=== PATIENT | female | born 1990 | race African-American/Black ===

== ENCOUNTER 2019-03-22 08:54 | Emergency (ER) | payer OTHER ==
[~2019-03-22] VITALS: Ht 152.4 cm; Wt 51.3 kg
[~2019-03-22 08:54] MED LIST: BUDE90AE IH; PREN1TAB80 PO
--- NOTE | 2019-03-22 09:30 | PHYS DOC ---
Adult General Chief Complaint Chief Complaint: ABDOMINAL PAIN IN HPI HPI Patient is a 28 year old female who presents with complaining of abdominal pain in . Patient is with LMP of February 02 and positive home 2 weeks ago without following up with [employer]. Patient complaining of nausea wi thout vomiting for the last 2 weeks and left side abdominal pain since this morning without vaginal bleeding or discharge, recent intercourse, urinary symptoms, fever and chills, diarrhea and constipation, fever and chills. Patient rated her pain 6/10 and denied taking any pain medication. Review of Systems Review of Systems Constitutional: Denies fever or chills [] Eyes: Denies change in visual acuity, redness, or eye pain [] HENT: Denies nasal congestion or sore throat [] Respiratory: Denies cough or shortness of breath [] Cardiovascular: No additional information not addressed in HPI [] GI: Reports abdominal pain, nausea, denies vomiting, bloody stools or diarrhea [] : Denies dysuria or hematuria [] Musculoskeletal: Denies back pain or joint pain [] Integument: Denies rash or skin lesions [] Neurologic: Denies headache, focal weakness or sensory changes [] Endocrine: Denies polyuria or polydipsia [] All other systems were reviewed and found to be within normal limits, except as documented in this note. Current Medications Current Medications Current Medications Medications (Trade) Dose Ordered Sig/Katrhik Start Time Stop Time Status Last Admin Dose Admin Ondansetron HCl (Zofran) 4 mg 1X ONCE 03/22/19 09:45 03/22/19 09:46 DC 03/22/19 10:23 4 MG Sodium Chloride 1,000 ml @ 1,000 mls/hr 1X ONCE 03/22/19 09:45 03/22/19 10:44 DC 03/22/19 10:23 1,000 MLS/HR Allergies Allergies Allergies Coded Allergies Type Severity Reaction Last Updated Verified No Known Drug Allergies 01/14/16 No Physical Exam Physical Exam Constitutional: Well developed, well nourished, no acute distress, non-toxic appearance. [] HENT: Normocephalic, atraumatic, oropharynx moist. Eyes: PERRLA, EOMI, conjunctiva normal, no discharge. [] Neck: Normal range of motion, no tenderness, supple, no stridor. [] Cardiovascular:Heart rate regular rhythm, no murmur [] Lungs & Thorax: Bilateral breath sounds clear to auscultation [] Abdomen: Bowel sounds normal, soft, no tenderness, no masses, no pulsatile masses. [] Skin: Warm, dry, no erythema, no rash. [] Back: No tenderness, no CVA tenderness. [] Extremities: No tenderness, no cyanosis, no clubbing, ROM intact, no edema. [] Neurologic: Alert and oriented X 3, normal motor function, normal sensory function, no focal deficits noted. [] Psychologic: Affect normal, judgement normal, mood normal. [] Current Patient Data Vital Signs Vital Signs Date Time Temp Pulse Resp B/P (MAP) Pulse Ox O2 Delivery O2 Flow Rate FiO2 03/22/19 09:37 98.4 64 16 130/88 (102) 100 98.4 Lab Values Laboratory Tests Test 03/22/19 09:05 03/22/19 09:20 03/22/19 09:30 Urine Collection Type Unknown Urine Color Yellow Urine Clarity Clear Urine pH 6.0 Urine Specific Norris 1.020 Urine Protein Negative mg/dL (NEG-TRACE) Urine Glucose (UA) Negative mg/dL (NEG) Urine Ketones (Stick) Negative mg/dL (NEG) Urine Blood Negative (NEG) Urine Nitrite Negative (NEG) Urine Bilirubin Negative (NEG) Urine Urobilinogen Dipstick 1.0 mg/dL (0.2 mg/dL) Urine Leukocyte Esterase Trace (NEG) Urine RBC 0 /HPF (0-2) Urine WBC Rare /HPF (0-4) Urine Squamous Epithelial Cells Few /LPF Urine Bacteria 0 /HPF (0-FEW) Urine Mucus Marked /LPF POC Urine HCG, Qualitative Hcg positive (Negative) White Blood Count 6.8 x10^3/uL (4.0-11.0) Red Blood Count 4.28 x10^6/uL (3.50-5.40) Hemoglobin 11.6 g/dL (12.0-15.5) L Hematocrit 35.2 % (36.0-47.0) L Mean Corpuscular Volume 82 fL (79-100) Mean Corpuscular Hemoglobin 27 pg (25-35) Mean Corpuscular Hemoglobin Concent 33 g/dL (31-37) Red Cell Distribution Width 13.3 % (11.5-14.5) Platelet Count 234 x10^3/uL (140-400) Neutrophils (%) (Auto) 67 % (31-73) Lymphocytes (%) (Auto) 21 % (24-48) L Monocytes (%) (Auto) 9 % (0-9) Eosinophils (%) (Auto) 3 % (0-3) Basophils (%) (Auto) 0 % (0-3) Neutrophils # (Auto) 4.6 x10^3/uL (1.8-7.7) Lymphocytes # (Auto) 1.4 x10^3/uL (1.0-4.8) Monocytes # (Auto) 0.6 x10^3/uL (0.0-1.1) Eosinophils # (Auto) 0.2 x10^3/uL (0.0-0.7) Basophils # (Auto) 0.0 x10^3/uL (0.0-0.2) Maternal Serum HCG Beta Subunit [id number] mIU/mL (0-5) H Sodium Level 136 mmol/L (136-145) Potassium Level 4.5 mmol/L (3.5-5.1) Chloride Level 103 mmol/L (98-107) Carbon Dioxide Level 25 mmol/L (21-32) Anion Gap 8 (6-14) Blood Urea Nitrogen 8 mg/dL (7-20) Creatinine 0.7 mg/dL (0.6-1.0) Estimated GFR (Cockcroft-Gault) 122.4 BUN/Creatinine Ratio 11 (6-20) Glucose Level 81 mg/dL (70-99) Calcium Level 8.4 mg/dL (8.5-10.1) L Total Bilirubin 0.3 mg/dL (0.2-1.0) Aspartate Amino Transferase (AST) 20 U/L (15-37) Alanine Aminotransferase (ALT) 16 U/L (14-59) Alkaline Phosphatase 115 U/L (46-116) Total Protein 7.6 g/dL (6.4-8.2) Albumin 3.4 g/dL (3.4-5.0) Albumin/Globulin Ratio 0.8 (1.0-1.7) L Laboratory Tests 03/22/19 09:30 Laboratory Tests 03/22/19 09:30 EKG EKG [] Radiology/Procedures Radiology/Procedures [][facility] [address] [place] [address] IMAGING REPORT Signed PATIENT: DARA PERALTA: [id number] : 1990 LOCATION: ER AGE: 28 SEX: F EXAM STATUS: REG ER ORD. PHYSICIAN: COLIN TAVERAS MD REASON: left lower quadrant pain during PROCEDURE: PREG 1ST TRIMESTER CLINICAL HISTORY: left lower quadrant pain during COMPARISON: None available. TECHNIQUE: transabdominal sonography was performed FINDINGS: An intrauterine gestational sac is present. An embryo is identified .Cardiac activity is visualized and documented at a rate of 141 beats per minute. There is no subchorionic fluid collection. Based on a crown rump length averaging 1.1 cm, the estimated gestational age is 7 weeks, 1 days. Estimated date of delivery is 11/07/2019. The right ovary measures 3 x 1.5 x 1.6 cm. The left ovary measures 3.3 x 2.4 x 1.8 cm. There is no pelvic free fluid. IMPRESSION: 1. Single live intrauterine gestation with mean sonographic age of 7 weeks, 1 days. The estimated date of delivery is 11/07/2019. 2. No abnormal adnexal masses Electronically signed by: Chacho Rivera MD (03/22/2019 10:36 AM) [id number] DICTATED and SIGNED BY: CHACHO RIVERA MD DATE: 03/22/19 1036 Course & Med Decision Making Course & Med Decision Making Pertinent Labs and Imaging studies reviewed. (See chart for details) Evaluation of patient in ER showed 28-year-old at 7 weeks of gestation with complaining of left lower quadrant pain since this morning and nausea for 2 weeks. Patient had unremarkable physical exam and labs with hCG level of 100 constant. OB ultrasound showed intrauterine single viable . Prescription for Zofran was given and patient was advised to follow-up with [employer]. I've spoken with the patient and/or caregivers. I've explained the patient's condition, diagnosis and treatment plan based on information available to me at this time. I've answered the patient's and/or caregivers questions and addressed any concerns. The patient and/or caregivers have a good understanding the patient's diagnosis, condition and treatment plan as can be expected at this point. Vital signs have been stabilized. The patient's condition is stable for discharge from the emergency department. The patient will pursue further outpatient evaluation with her primary care provider or other designated consulting physician as outlined in the discharge instructions. Patient and/or caregivers are agreeable to this plan of care and follow-up instructions have been explained in detail. The patient and/or caregivers have received these instructions in written format and expressed understanding of these discharge instructions. The patient and her caregivers are aware that if any significant change in condition or worsening of symptoms should prompt him to immediately return to this of the closest emergency department. If an emergent department is not readily available I would encourage him to call 911. Dragon Disclaimer Dragon Disclaimer This electronic medical record was generated, in whole or in part, using a voice recognition dictation system. Departure Departure Impression: Primary Impression: Abdominal pain during in first trimester Additional Impressions: Intrauterine normal related nausea, antepartum Disposition: HOME, SELF-CARE (at 1052) Condition: IMPROVED Referrals: NO PCP (PCP) DANIEL STONE MD Patient Instructions: Abdominal Pain During , Diet - Hyperemesis Gravidarum Additional Instructions: Drink plenty of liquids Follow-up with your [employer] physician in 3-5 days Return to ER if not getting better Scripts Ondansetron Hcl (ZOFRAN) 4 Mg Tablet 1 TAB PO PRN Q6-8HRS for nausea, #12 TAB Prov: COLIN TAVERAS MD 03/22/19 Problem Qualifiers Additional Impressions: Intrauterine normal Trimester: first trimester Qualified Codes: Z34.91 - Encounter for supervision of normal , unspecified, first trimester COLIN TAVERAS MD Mar 22, 2019 09:30
[2019-03-22 09:37] VITALS: BP 130/88
[2019-03-22] MEDS ORDERED: IV NORMAL SALINE 1000ML BAG 1,000 ML IV ONE (09:45)
[2019-03-22] MEDS ORDERED: ONDANSETRON PF 4 MG/2 ML VIAL. IV ONE (09:45)
[2019-03-22 09:58] LABS: BASO % 0 % (0-3); EOS # 0.2 x10^3/uL (0.0-0.7); EOS % 3 % (0-3); HEMATOCRIT 35.2 % (36.0-47.0); HEMOGLOBIN 11.6 g/dL (12.0-15.5); LYMPH # 1.4 x10^3/uL (1.0-4.8); LYMPH % 21 % (24-48); MEAN CORPUSCULAR HEMOGLOBIN 27 pg (25-35); MEAN CORPUSCULAR HGB CONC 33 g/dL (31-37); MEAN CORPUSCULAR VOLUME 82 fL (79-100); MONO # 0.6 x10^3/uL (0.0-1.1); MONO % 9 % (0-9); NEUT # 4.6 x10^3/uL (1.8-7.7); NEUT % 67 % (31-73); PLATELET COUNT 234 x10^3/uL (140-400); RED BLOOD COUNT 4.28 x10^6/uL (3.50-5.40); RED CELL DISTRIBUTION WIDTH 13.3 % (11.5-14.5); WHITE BLOOD COUNT 6.8 x10^3/uL (4.0-11.0)
[2019-03-22 10:09] LABS: CALCIUM 8.4 mg/dL (8.5-10.1); CREATININE 0.7 mg/dL (0.6-1.0); GFR 122.4; POTASSIUM 4.5 mmol/L (3.5-5.1)
[2019-03-22 10:15] LABS: BILIRUBIN,URINE NEGATIVE (NEG); CLARITY,URINE CLEAR; COLOR,URINE YELLOW; NITRITE,URINE NEGATIVE (NEG); PROTEIN,URINE NEGATIVE (NEG-TRACE)
[2019-03-22 10:16] LABS: ALBUMIN 3.4 g/dL (3.4-5.0); ALBUMIN/GLOBULIN RATIO 0.8 (1.0-1.7); TOTAL BILIRUBIN 0.3 mg/dL (0.2-1.0); TOTAL PROTEIN 7.6 g/dL (6.4-8.2)
--- NOTE | 2019-03-22 10:39 | RAD ---
CLINICAL HISTORY: left lower quadrant pain during COMPARISON: None available. TECHNIQUE: transabdominal sonography was performed FINDINGS: An intrauterine gestational sac is present. An embryo is identified .Cardiac activity is visualized and documented at a rate of 141 beats per minute. There is no subchorionic fluid collection. Based on a crown rump length averaging 1.1 cm, the estimated gestational age is 7 weeks, 1 days. Estimated date of delivery is 11/07/2019. The right ovary measures 3 x 1.5 x 1.6 cm. The left ovary measures 3.3 x 2.4 x 1.8 cm. There is no pelvic free fluid. IMPRESSION: 1. Single live intrauterine gestation with mean sonographic age of 7 weeks, 1 days. The estimated date of delivery is 11/07/2019. 2. No abnormal adnexal masses Electronically signed by: Chacho Kc MD (03/22/2019 10:36 AM) [id number]
[2019-03-22 10:55] LABS: BACTERIA,URINE 0 /HPF (0-FEW); RBC,URINE 0 /HPF (0-2); SQUAMOUS EPITHELIAL CELL,UR FEW /LPF; WBC,URINE RARE /HPF (0-4)
[2019-03-22] MEDS ORDERED: ONDA4TAB7 PO (10:56)
== END 2019-03-22 11:03 | disposition home or self-care (01) ==
LOC: ER 08:54
DX: O26.891 Other specified pregnancy related conditions, first trimester (principal); R10.32 Left lower quadrant pain; R11.0 Nausea; Z3A.01 Less than 8 weeks gestation of pregnancy
CPT/HCPCS: 36415; 76801; 80053; 81001; 81025; 84702; 85025; 87086; 96374; 99285; J2405; J7030

== ENCOUNTER 2019-05-10 22:12 | Emergency (ER) | payer MEDICAID ==
[~2019-05-10] VITALS: Ht 152.4 cm; Wt 56.7 kg
[~2019-05-10 22:12] MED LIST changes: +ONDA4TAB7 PO
[2019-05-10 23:51] VITALS: BP 106/68
--- NOTE | 2019-05-11 00:03 | PHYS DOC ---
Past Medical History Past Medical History: No Pertinent History Past Surgical History: No Surgical History Alcohol Use: None Drug Use: None Adult General Chief Complaint Chief Complaint: VAGINAL BLEEDING [place] [employer] HPI Patient is a 28 year old female who presents with complaining of vaginal bleeding during . Patient is at 14 weeks of gestation and complaining of one episode of small amount of vaginal bleeding yesterday after intercourse that resolved today. Patient had itching and developing a rash after itching on her extremities and her back today and called nurse enterprise application architect to ask about taking Benadryl but was told to come to ER regarding her vaginal bleeding. Patient denies shortness of breath, abdominal pain, chest pain, urinary symptom, vaginal discharge. According to EMR patient had blood type A+. Review of Systems Review of Systems Constitutional: Denies fever or chills [] Eyes: Denies change in visual acuity, redness, or eye pain [] HENT: Denies nasal congestion or sore throat [] Respiratory: Denies cough or shortness of breath [] Cardiovascular: No additional information not addressed in HPI [] GI: Denies abdominal pain, nausea, vomiting, bloody stools or diarrhea [] : Denies dysuria or hematuria [] Musculoskeletal: Denies back pain or joint pain [] Integument: Reports rash Neurologic: Denies headache, focal weakness or sensory changes [] Endocrine: Denies polyuria or polydipsia [] All other systems were reviewed and found to be within normal limits, except as documented in this note. Allergies Allergies Allergies Coded Allergies Type Severity Reaction Last Updated Verified No Known Drug Allergies 01/14/16 No Physical Exam Physical Exam Constitutional: Well developed, well nourished, no acute distress, non-toxic appearance. [] HENT: Normocephalic, atraumatic. Eyes: PERRLA, EOMI, conjunctiva normal, no discharge. [] Neck: Normal range of motion, no tenderness, supple, no stridor. [] Cardiovascular:Heart rate regular rhythm, no murmur [] Lungs & Thorax: Bilateral breath sounds clear to auscultation [] Abdomen: Bowel sounds normal, soft, no tenderness, no masses, no pulsatile masses. Patient refused vaginal exam [] Skin: Warm, dry, no erythema, no rash. [] Back: No tenderness, no CVA tenderness. [] Extremities: No tenderness, no cyanosis, no clubbing, ROM intact, no edema. [] Neurologic: Alert and oriented X 3, no focal deficits noted. [] Psychologic: Affect normal, judgement normal, mood normal. [] Current Patient Data Vital Signs Vital Signs Date Time Temp Pulse Resp B/P (MAP) Pulse Ox O2 Delivery O2 Flow Rate FiO2 05/10/19 23:51 84 106/68 (81) 97 Room Air 05/10/19 22:51 18 05/10/19 22:30 98.4 98.4 Lab Values Laboratory Tests Test 05/10/19 22:25 POC Urine HCG, Qualitative Hcg positive (Negative) EKG EKG [] Radiology/Procedures Radiology/Procedures [][facility] [address] [place], [place] [id number] IMAGING REPORT Signed PATIENT: DARA PERALTAOUNT: [id number] : 1990 LOCATION: ER AGE: 28 SEX: F EXAM STATUS: REG ER ORD. PHYSICIAN: COLIN TAVERAS MD REASON: vaginal bleeding in PROCEDURE: OB LIMITED Examination: Obstetric ultrasound limited HISTORY: History of vaginal bleeding in COMPARISON: 03/22/2019 FINDINGS: Single living intrauterine identified with heart rate of 165 bpm. LMP 01/31/2019. Clinical age 14 weeks and 1 day with expected date of delivery 11/07/2019. Ultrasound age is 14 weeks and 4 days with expected date of delivery by ultrasound 11/04/2019. Cephalic index 90.1 Head circumference to abdominal circumference ratio 1.1 Femur length to biparietal diameter 52.7. Femur length to head circumference 13.9 Femur length to abdominal circumference is 16.6 Biparietal diameter measures 2.6 cm corresponding to 14 weeks and 4 days Head circumference measures 10 cm corresponding to 14 weeks and 5 days Abdominal circumference measures 8.3 cm corresponding to 14 weeks and 5 days Femur length measures 1.3 cm corresponding to 14 weeks and 1 day [place]-rump length measures 8.6 cm corresponding to 14 weeks and 4 days The posterior wall of the uterus appears more prominent could be contraction during the exam. IMPRESSION: 1. Single living intrauterine as described above. 2. The posterior wall of the uterus appears more prominent could be contraction during the exam. Electronically signed by: Anurag Gill MD (05/11/2019 12:11 AM) [facility] DICTATED and SIGNED BY: ANURAG GILL MD DATE: 05/11/19 0011 Course & Med Decision Making Course & Med Decision Making Pertinent Imaging studies reviewed. (See chart for details) Evaluation of patient in ER showed 28-year-old female patient with complaining of vaginal bleeding after intercourse. Patient had unremarkable physical exam with positive blood type. Ultrasound showed intrauterine without acute problem. Patient also complaining of some rash but did not have any rash in ER and was advised to take Benadryl as needed. I've spoken with the patient and/or caregivers. I've explained the patient's condition, diagnosis and treatment plan based on information available to me at this time. I've answered the patient's and/or caregivers questions and addressed any concerns. The patient and/or caregivers have a good understanding the patient's diagnosis, condition and treatment plan as can be expected at this point. Vital signs have been stabilized. The patient's condition is stable for discharge from the emergency department. The patient will pursue further outpatient evaluation with her primary care provider or other designated consulting physician as outlined in the discharge instructions. Patient and/or caregivers are agreeable to this plan of care and follow-up instructions have been explained in detail. The patient and/or ca regivers have received these instructions in written format and expressed understanding of these discharge instructions. The patient and her caregivers are aware that if any significant change in condition or worsening of symptoms should prompt him to immediately return to this of the closest emergency department. If an emergent department is not readily available I would encourag e him to call 911. Geovani Disclaimer Geovani Disclaimer This electronic medical record was generated, in whole or in part, using a voice recognition dictation system. Departure Departure Impression: Primary Impression: Postcoital bleeding Additional Impressions: Vaginal bleeding during Itching Disposition: 01 HOME, SELF-CARE (at 0002) Condition: STABLE Referrals: NO PCP (PCP) Patient Instructions: Itching-Brief, Vaginal Bleeding During , Second Trimester Additional Instructions: Drink plenty of liquids Follow-up with your primary care physician in 3-5 days Return to ER if not getting better Pelvic rest for one week May take [id number] Benadryl 25 mg every 8-12 hours as needed for itching Problem Qualifiers COLIN TAVERAS MD May 11, 2019 00:03
--- NOTE | 2019-05-11 00:14 | RAD ---
Examination: Obstetric ultrasound limited HISTORY: History of vaginal bleeding in COMPARISON: 03/22/2019 FINDINGS: Single living intrauterine identified with heart rate of 165 bpm. LMP 01/31/2019. Clinical age 14 weeks and 1 day with expected date of delivery 11/07/2019. Ultrasound age is 14 weeks and 4 days with expected date of delivery by ultrasound 11/04/2019. Cephalic index 90.1 Head circumference to abdominal circumference ratio 1.1 Femur length to biparietal diameter 52.7. Femur length to head circumference 13.9 Femur length to abdominal circumference is 16.6 Biparietal diameter measures 2.6 cm corresponding to 14 weeks and 4 days Head circumference measures 10 cm corresponding to 14 weeks and 5 days Abdominal circumference measures 8.3 cm corresponding to 14 weeks and 5 days Femur length measures 1.3 cm corresponding to 14 weeks and 1 day [place]-rump length measures 8.6 cm corresponding to 14 weeks and 4 days The posterior wall of the uterus appears more prominent could be contraction during the exam. IMPRESSION: 1. Single living intrauterine as described above. 2. The posterior wall of the uterus appears more prominent could be contraction during the exam. Electronically signed by: Anurag Gill MD (05/11/2019 12:11 AM) [facility]
== END 2019-05-11 00:18 | disposition home or self-care (01) ==
LOC: ER 22:12
DX: O20.8 Other hemorrhage in early pregnancy (principal); O99.712 Diseases of the skin and subcutaneous tissue complicating pregnancy, second trimester; L29.9 Pruritus, unspecified; Z3A.14 14 weeks gestation of pregnancy
CPT/HCPCS: 76815; 81025; 99284

== ENCOUNTER 2019-06-27 23:10 | Observation (INO) | payer MEDICAID ==
[2019-06-27] MEDS ORDERED: IV RINGERS,LACTATED 1000ML 1,000 ML IV SCH (23:15)
[2019-06-27 23:54] LABS: BILIRUBIN,URINE NEGATIVE (NEG); CLARITY,URINE CLEAR; COLOR,URINE YELLOW; NITRITE,URINE NEGATIVE (NEG); PROTEIN,URINE NEGATIVE (NEG-TRACE)
[2019-06-27 23:57] LABS: BACTERIA,URINE FEW /HPF (0-FEW); RBC,URINE 0 /HPF (0-2); SQUAMOUS EPITHELIAL CELL,UR MOD /LPF
[2019-06-28] LABS: AMPHETAMINE/METHAMPHETAMINE NEG (NEG); BARBITURATES NEG (NEG); BENZODIAZEPINES NEG (NEG); CANNABINOIDS POS (NEG); COCAINE NEG (NEG); METHADONE NEG (NEG); OPIATES NEG (NEG); PHENCYCLIDINE NEG (NEG)
== END 2019-06-28 00:37 | disposition home or self-care (01) ==
LOC: 3 SO LND 23:10
PROVIDERS: ADMIT Obstetrics & Gynecology; ATTEND Obstetrics & Gynecology
DX: Z34.82 Encounter for supervision of other normal pregnancy, second trimester (principal); Z3A.22 22 weeks gestation of pregnancy; Y04.0XXA Assault by unarmed brawl or fight, initial encounter; Y93.89 Activity, other specified; Y92.89 Other specified places as the place of occurrence of the external cause; Y99.9 Unspecified external cause status
CPT/HCPCS: 80307; 81001; 87086; G0378; G0379

== ENCOUNTER 2019-10-30 17:46 | Observation (INO) | payer MEDICAID ==
[2019-10-30] MEDS ORDERED: IV RINGERS,LACTATED 1000ML 1,000 ML IV PRN (18:00)
[2019-10-30 18:15] LABS: BILIRUBIN,URINE NEGATIVE (NEG); CLARITY,URINE CLEAR; NITRITE,URINE NEGATIVE (NEG); PROTEIN,URINE NEGATIVE (NEG-TRACE); UROBILINOGEN,URINE 0.2 mg/dL (0.2 mg/dL)
[2019-10-30 18:21] LABS: COLOR,URINE STRAW
[2019-10-30 18:23] LABS: BACTERIA,URINE FEW /HPF (0-FEW); RBC,URINE 0 /HPF (0-2); SQUAMOUS EPITHELIAL CELL,UR FEW /LPF; WBC,URINE RARE /HPF (0-4)
== END 2019-10-30 19:46 | disposition home or self-care (01) ==
LOC: 3 SO LND 17:46
PROVIDERS: ADMIT Obstetrics & Gynecology; ATTEND Obstetrics & Gynecology
DX: O36.8130 Decreased fetal movements, third trimester, not applicable or unspecified (principal); Z3A.39 39 weeks gestation of pregnancy
CPT/HCPCS: 81001; G0378; G0379

== ENCOUNTER 2019-11-03 20:11 | Inpatient (IN) | payer MEDICAID ==
[~2019-11-03] VITALS: Ht 152.4 cm; Wt 68.5 kg
[2019-11-03] MEDS ORDERED: LIDOCAINE 1% PF 30 ML VIAL. INJ PRN (20:15)
[2019-11-03] MEDS ORDERED: 0.9 % SODIUM CHLORIDE 10 ML DISP.SYRIN. IV PRN (20:15)
[2019-11-03] MEDS ORDERED: fentaNYL PF VIAL 100 MCG/2 ML VIAL IVP PRN (20:15)
[2019-11-03] MEDS ORDERED: DINOPROSTONE 10 MG SUPP.VAG VG ONE (20:15)
[2019-11-03] MEDS ORDERED: OXYTOCIN 30 UNIT/500 ML PREMIX 500 ML IV PRN ×2 (20:15)
[2019-11-03] MEDS ORDERED: TERBUTALINE 1 MG/ML VIAL. SQ PRN (20:15)
[2019-11-03] MEDS ORDERED: ACETAMINOPHEN 325 MG TABLET. PO PRN (20:15)
[2019-11-03] MEDS ORDERED: IBUPROFEN 400 MG TABLET. PO PRN ×2 (20:15→20:30)
[2019-11-03] MEDS ORDERED: diphenhydrAMINE HCL 25 MG CAPSULE PO PRN (20:15)
[2019-11-03] MEDS ORDERED: ONDANSETRON PF 4 MG/2 ML VIAL. IVP PRN (20:15)
[2019-11-03] MEDS ORDERED: PENICILLIN G K 5,000,000 UNIT in IV DEXTROSE 5% 100ML 100 ML IV ONE (20:30)
[2019-11-03] MEDS: IV RINGERS,LACTATED 1000ML 1,000 ML IV SCH (21:16)
[2019-11-03 21:34] LABS: BASO % 0 % (0-3); EOS # 0.1 x10^3/uL (0.0-0.7); EOS % 2 % (0-3); HEMATOCRIT 30.4 % (36.0-47.0); HEMOGLOBIN 9.9 g/dL (12.0-15.5); LYMPH % 16 % (24-48); MEAN CORPUSCULAR HEMOGLOBIN 28 pg (25-35); MEAN CORPUSCULAR HGB CONC 33 g/dL (31-37); MEAN CORPUSCULAR VOLUME 86 fL (79-100); MONO # 0.9 x10^3/uL (0.0-1.1); MONO % 14 % (0-9); NEUT # 4.5 x10^3/uL (1.8-7.7); NEUT % 68 % (31-73); PLATELET COUNT 167 x10^3/uL (140-400); RED BLOOD COUNT 3.54 x10^6/uL (3.50-5.40); WHITE BLOOD COUNT 6.6 x10^3/uL (4.0-11.0)
[2019-11-04] MEDS ORDERED: PENICILLIN G K 5,000,000 UNIT in IV DEXTROSE 5% 100ML 100 ML IV ONE (06:00)
[2019-11-04] MEDS: IV RINGERS,LACTATED 1000ML 1,000 ML IV SCH ×3 (06:45→20:13)
[2019-11-04] MEDS ORDERED: OXYTOCIN PREMIX 30 UNIT/500 ML NS BAG. IV ONE (07:00)
[2019-11-04] MEDS ORDERED: PENICILLIN G K 2,500,000 UNIT in IV DEXTROSE 5% 50 ML IV SCH (10:00)
--- NOTE | 2019-11-04 10:02 | PDOC1 ---
OB - History Hx of Present Care: Good Care Ultrasounds: Normal mid trimester US Obstetrical Complications: None Medical Complications: None Past Family/Social History * Past Medical, Surgical, Family and Obstetric Histories reviewed from chart. Blood Type: B+ Rubella: Immune RPR/VDRL: Negative GBS Status: Negative HBsAG: Negative OB - Chief Complaint & HPI Date of Admission: Date of Admission: Nov 03, 2019 at 20:11 Chief Complaint/History : 3 Para: 2 EGA: 39 Reason for admission: induction of labor Indication for induction: maternal discomfort Admission Nurse Assessment Rev: Yes OB - Admission Exam Physical Exam HEENT: Normal Heart: Regular Rate Lungs: Clear Abdomen: Gravid, Non tender, Soft Extremities: Edema Reflexes: Normal Cervical Dilatation: 1cm Effacement: 50% Station: -3 Membranes: Intact Heart Rate: Normal Accelerations: Accelerations Present Decelerations: No decelerations Heel [place] Variability: Moderate Contractions on Admission: None Text A: 39 wks IUP IOL secondary discomforts P: Admit for IOL cervidil, then pitocin. LUC DICKENS Jr, MD Nov 04, 2019 10:02
[2019-11-04] MEDS ORDERED: IV RINGERS,LACTATED 1000ML 1,000 ML IV SCH (10:29)
[2019-11-04] MEDS ORDERED: PHENYLEPHRINE in 0.9% NACL PF 1 MG/10 ML SYRINGE. IV PRN (10:30)
[2019-11-04] MEDS ORDERED: IV RINGERS,LACTATED 500ML 500 ML IV PRN (10:30)
[2019-11-04] MEDS ORDERED: BUPIVACAINE MPF 0.25% 30 ML VIAL. EPID PRN (10:30)
[2019-11-04] MEDS ORDERED: NALOXONE 0.4 MG/ML VIAL. IV PRN (10:30)
[2019-11-04] MEDS ORDERED: ROPIVacaine 0.2% PF 10 ML VIAL. EPID PRN (10:30)
[2019-11-04] MEDS ORDERED: fentaNYL PF VIAL 100 MCG/2 ML VIAL EPID PRN (10:30)
[2019-11-04] MEDS ORDERED: diphenhydrAMINE 50 MG/ML VIAL IV PRN ×2 (10:30)
[2019-11-04] MEDS ORDERED: ePHEDrine PF IN SALINE 50 MG/10 ML SYRINGE. IV PRN (10:30)
[2019-11-04] MEDS ORDERED: ONDANSETRON PF 4 MG/2 ML VIAL. IVP PRN (10:30)
[2019-11-04] MEDS ORDERED: PROCHLORPERAZINE 10 MG/2 ML VIAL. IV PRN (10:30)
[2019-11-04] MEDS ORDERED: ROPIVacaine 0.2% PF 10 ML VIAL. ONE (11:00)
[2019-11-04] MEDS: L&D EPIDURAL SYRINGE 50 ML EPID PRN ×3 (11:01→18:02)
--- NOTE | 2019-11-04 18:50 | PDOC ---
VAGINAL DELIVERY DATE DATE: 11/04/19 TIME: 18:48 : 3 Para: 3 EGA: 40 VAGINAL DELIVERY: VTX VACCUM ASSISTED: No PLACENTA: Spontaneous 8/9 SEX: Male WEIGHT Weight [ 2920 gm] Nuchal Cord: No Amniotic Fluid: Clear PAIN: Epidural EPISIOTOMY: No EXTENSION: Yes (periurethral laceration) REPAIRED WITH 3-0 chromic EBL 300 ml COMPLICATIONS none CONDITION pt. stable Signs of Intrauterine Infectio: None Shoulder Dystocia: No LUC DICKENS Jr, MD Nov 04, 2019 18:50
[2019-11-04] MEDS ORDERED: diphenhydrAMINE HCL 25 MG CAPSULE PO PRN (19:00)
[2019-11-04] MEDS ORDERED: MAGNESIUM HYDROXIDE 2,400 MG/30 ML ORAL.SUSP. PO PRN (19:00)
[2019-11-04] MEDS ORDERED: OXYTOCIN 30 UNIT/500 ML PREMIX 500 ML IV PRN (19:00)
[2019-11-04] MEDS ORDERED: ZOLPIDEM 5 MG TABLET. PO PRN (19:00)
[2019-11-04] MEDS ORDERED: TDaP (Adacel) per PROTOCOL. MC PRN (19:00)
[2019-11-04] MEDS ORDERED: BENZOCAINE 20% TOPICAL AEROSOL SPRAY 57GM CAN. TP PRN (19:00)
[2019-11-04] MEDS ORDERED: MAG HYDROX/ALUMINUM HYD/SIMETH 30 ML ORAL.SUSP PO PRN (19:00)
[2019-11-04] MEDS ORDERED: PHENYLEPH/MINERAL OIL/PETROLAT RECTAL OINTMENT TUBE. RC PRN (19:00)
[2019-11-04] MEDS ORDERED: HYDROCORTISONE 1% TOPICAL OINTMENT 30GM TUBE. TP PRN (19:00)
[2019-11-04] MEDS ORDERED: MMR per PROTOCOL. MC PRN (19:00)
[2019-11-04] MEDS ORDERED: ACETAMINOPHEN 325 MG TABLET. PO PRN (19:00)
[2019-11-04] MEDS ORDERED: 0.9 % SODIUM CHLORIDE 10 ML DISP.SYRIN. IV PRN (19:00)
[2019-11-04] MEDS ORDERED: SIMETHICONE 80 MG TAB.CHEW PO PRN (19:00)
[2019-11-04 22:10] VITALS: BP 104/66
[2019-11-05 05:35] VITALS: BP 90/62
[2019-11-05 06:57] LABS: BASO % 0 % (0-3); EOS # 0.1 x10^3/uL (0.0-0.7); EOS % 1 % (0-3); HEMOGLOBIN 9.9 g/dL (12.0-15.5); LYMPH % 10 % (24-48); MEAN CORPUSCULAR HEMOGLOBIN 28 pg (25-35); MEAN CORPUSCULAR HGB CONC 33 g/dL (31-37); MEAN CORPUSCULAR VOLUME 86 fL (79-100); MONO # 1.1 x10^3/uL (0.0-1.1); MONO % 11 % (0-9); NEUT # 7.4 x10^3/uL (1.8-7.7); NEUT % 77 % (31-73); PLATELET COUNT 144 x10^3/uL (140-400); RED BLOOD COUNT 3.49 x10^6/uL (3.50-5.40); WHITE BLOOD COUNT 9.6 x10^3/uL (4.0-11.0)
[2019-11-05] MEDS: FERROUS SULFATE 325 MG TABLET. PO SCH ×3 (07:44→17:06)
[2019-11-05] MEDS: DOCUSATE SODIUM 100 MG CAPSULE. PO PRN ×3 (07:44→17:06)
[2019-11-05] MEDS: MULTIVITAMIN with MINERAL TABLET. PO SCH ×2 (07:44→09:46)
[2019-11-05] MEDS: oxyCODONE/APAP 5/325 1 TAB TABLET PO PRN ×2 (07:52→21:14)
--- NOTE | 2019-11-05 08:23 | PDOC ---
OB Progress Note Date of Service 11/05/19 Time of Evaluation 0820 Notes Pt. feeling well. No complaints. Lab Laboratory Tests Test 11/03/19 20:45 11/05/19 06:00 White Blood Count 6.6 x10^3/uL (4.0-11.0) 9.6 x10^3/uL (4.0-11.0) Red Blood Count 3.54 x10^6/uL (3.50-5.40) 3.49 x10^6/uL (3.50-5.40) Hemoglobin 9.9 g/dL (12.0-15.5) 9.9 g/dL (12.0-15.5) Hematocrit 30.4 % (36.0-47.0) 30.0 % (36.0-47.0) Mean Corpuscular Volume 86 fL (79-100) 86 fL (79-100) Mean Corpuscular Hemoglobin 28 pg (25-35) 28 pg (25-35) Mean Corpuscular Hemoglobin Concent 33 g/dL (31-37) 33 g/dL (31-37) Red Cell Distribution Width 16.0 % (11.5-14.5) 16.0 % (11.5-14.5) Platelet Count 167 x10^3/uL (140-400) 144 x10^3/uL (140-400) Neutrophils (%) (Auto) 68 % (31-73) 77 % (31-73) Lymphocytes (%) (Auto) 16 % (24-48) 10 % (24-48) Monocytes (%) (Auto) 14 % (0-9) 11 % (0-9) Eosinophils (%) (Auto) 2 % (0-3) 1 % (0-3) Basophils (%) (Auto) 0 % (0-3) 0 % (0-3) Neutrophils # (Auto) 4.5 x10^3/uL (1.8-7.7) 7.4 x10^3/uL (1.8-7.7) Lymphocytes # (Auto) 1.0 x10^3/uL (1.0-4.8) 1.0 x10^3/uL (1.0-4.8) Monocytes # (Auto) 0.9 x10^3/uL (0.0-1.1) 1.1 x10^3/uL (0.0-1.1) Eosinophils # (Auto) 0.1 x10^3/uL (0.0-0.7) 0.1 x10^3/uL (0.0-0.7) Basophils # (Auto) 0.0 x10^3/uL (0.0-0.2) 0.0 x10^3/uL (0.0-0.2) Treponema pallidum Antibody Nonreactive (Nonreactive) Laboratory Tests Test 11/05/19 06:00 White Blood Count 9.6 x10^3/uL (4.0-11.0) Red Blood Count 3.49 x10^6/uL (3.50-5.40) Hemoglobin 9.9 g/dL (12.0-15.5) Hematocrit 30.0 % (36.0-47.0) Mean Corpuscular Volume 86 fL (79-100) Mean Corpuscular Hemoglobin 28 pg (25-35) Mean Corpuscular Hemoglobin Concent 33 g/dL (31-37) Red Cell Distribution Width 16.0 % (11.5-14.5) Platelet Count 144 x10^3/uL (140-400) Neutrophils (%) (Auto) 77 % (31-73) Lymphocytes (%) (Auto) 10 % (24-48) Monocytes (%) (Auto) 11 % (0-9) Eosinophils (%) (Auto) 1 % (0-3) Basophils (%) (Auto) 0 % (0-3) Neutrophils # (Auto) 7.4 x10^3/uL (1.8-7.7) Lymphocytes # (Auto) 1.0 x10^3/uL (1.0-4.8) Monocytes # (Auto) 1.1 x10^3/uL (0.0-1.1) Eosinophils # (Auto) 0.1 x10^3/uL (0.0-0.7) Basophils # (Auto) 0.0 x10^3/uL (0.0-0.2) Medications Current Medications Sodium Chloride (Normal Saline Flush) 3 ml QSHIFT PRN IV AFTER MEDS AND BLOOD DRAWS; Start 11/03/19 at 20:15; Stop 11/04/19 at 18:55; Status DC Ringer's Solution 1,000 ml @ 125 mls/hr Q8H IV Last administered on 11/04/19at 10:24; Start 11/03/19 at 20:13; Stop 11/05/19 at 00:17; Status DC Fentanyl Citrate (Fentanyl 2ml Vial) 100 mcg PRN Q30MIN PRN IVP Severe pain; Start 11/03/19 at 20:15 Acetaminophen (Tylenol) 650 mg PRN Q6HRS PRN PO MILD PAIN / TEMP; Start 11/03/19 at 20:15 Ondansetron HCl (Zofran) 4 mg PRN Q4HRS PRN IVP NAUSEA/VOMITING; Start 11/03/19 at 20:15; Stop 11/04/19 at 10:38; Status DC Terbutaline Sulfate (Brethine) 0.25 mg 1X PRN PRN SQ SEE COMMENTS; Start 11/03/19 at 20:15; Stop 11/04/19 at 20:14; Status DC Lidocaine HCl (Xylocaine 1% Pf 30ml Vial) 30 ml 1X PRN PRN INJ SEE COMMENTS Last administered on 11/04/19at 18:58; Start 11/03/19 at 20:15; Stop 11/05/19 at 20:14 Oxytocin/Sodium Chloride 500 ml @ 0 mls/hr CONT PRN IV SEE I/O RECORD Last administered on 11/04/19at 10:25; Start 11/03/19 at 20:15 Oxytocin/Sodium Chloride 500 ml @ 0 mls/hr CONT PRN PRN IV Post delivery bleeding; Start 11/03/19 at 20:15 Ibuprofen (Motrin) 800 mg PRN Q6HRS PRN PO PAIN; Start 11/03/19 at 20:15; Stop 11/03/19 at 20:20; Status DC Penicillin G Potassium [id number] unit/Dextrose 100 ml @ 100 mls/hr 1X ONCE IV ; Start 11/03/19 at 20:30; Stop 11/03/19 at 20:21; Status DC Penicillin G Potassium [id number] unit/Dextrose 50 ml @ 100 mls/hr Q4H IV ; Start 11/04/19 at 10:00; Stop 11/03/19 at 21:30; Status DC Dinoprostone (Cervidil) 10 mg 1X ONCE VG Last administered on 11/03/19at 21:16; Start 11/03/19 at 20:15; Stop 11/03/19 at 20:20; Status DC Diphenhydramine HCl (Benadryl) 25 mg PRN QHS PRN PO INSOMNIA; Start 11/03/19 at 20:15 Ibuprofen (Motrin) 800 mg PRN Q8HRS PRN PO INFLAMMATION Last administered on 11/05/19at 00:29; Start 11/03/19 at 20:30 Penicillin G Potassium [id number] unit/Dextrose 100 ml @ 100 mls/hr 1X ONCE IV ; Start 11/04/19 at 06:00; Stop 11/03/19 at 21:30; Status DC Oxytocin/Sodium Chloride (Oxytocin Premix Infusion) 30 unit STK-MED ONCE IV ; Start 11/04/19 at 07:00; Stop 11/04/19 at 08:33; Status DC Ringer's Solution 1,000 ml @ 1,000 mls/hr Q1H IV Last administered on 11/04/19at 18:01; Start 11/04/19 at 10:29; Stop 11/04/19 at 11:28; Status DC Ringer's Solution 500 ml @ 500 mls/hr 1X PRN PRN IV HYPOTENSION; Start 11/04/19 at 10:30; Stop 11/05/19 at 00:17; Status DC Ephedrine Sulfate (ePHEDrine PF IN SALINE SYRINGE) 10 mg PRN Q2MIN PRN IV IF SBP<90; Start 11/04/19 at 10:30 Phenylephrine HCl (PHENYLEPHRINE in 0.9% NACL PF) 0.05 mg PRN Q2MIN PRN IV SBP less than 90; Start 11/04/19 at 10:30 Naloxone HCl (Narcan) 0.04 mg PRN Q1MIN PRN IV SEE COMMENTS; Start 11/04/19 at 10:30 Fentanyl Citrate (Fentanyl 2ml Vial) 100 mcg PRN 1X PRN EPID FOR ANESTHESIA Last administered on 11/04/19at 10:58; Start 11/04/19 at 10:30; Stop 11/05/19 at 10:29 Bupivacaine HCl (Sensorcaine Mpf 0.25%) 10 ml PRN 1X PRN EPID FOR ANESTHESIA; Start 11/04/19 at 10:30; Stop 11/05/19 at 10:29 Fentanyl Citrate 50 ml @ 14 mls/hr CONT PRN EPID PAIN Last administered on 11/04/19at 18:02; Start 11/04/19 at 10:30 Ondansetron HCl (Zofran) 4 mg PRN Q6HRS PRN IVP NAUSEA/VOMITING Last administered on 11/04/19at 19:39; Start 11/04/19 at 10:30 Prochlorperazine Edisylate (Compazine) 5 mg PRN Q6HRS PRN IV NAUSEA/VOMITING; Start 11/04/19 at 10:30 Diphenhydramine HCl (Benadryl) 12.5 mg PRN Q4HRS PRN IV ITCHING; Start 11/04/19 at 10:30 Diphenhydramine HCl (Benadryl) 12.5 mg PRN Q2HR PRN IV ITCHING; Start 11/04/19 at 10:30 Ropivacaine (Naropin 0.2%) 20 ml 1X PRN PRN EPID PER ANESTHESIA; Start 11/04/19 at 10:30; Stop 11/05/19 at 10:29 Sodium Chloride (Normal Saline Flush) 10 ml QSHIFT PRN IV AFTER MEDS AND BLOOD DRAWS; Start 11/04/19 at 19:00 Oxytocin/Sodium Chloride 500 ml @ 62.5 mls/hr CONT PRN IV SEE I/O RECORD; Start 11/04/19 at 19:00; Stop 11/05/19 at 02:59; Status DC Acetaminophen (Tylenol) 650 mg PRN Q6HRS PRN PO MILD PAIN / TEMP; Start 11/04/19 at 19:00 Ibuprofen (Motrin) 800 mg PRN Q8HRS PRN PO INFLAMMATION/PAIN PREVENTION; Start 11/04/19 at 19:00 Docusate Sodium (Colace) 100 mg PRN BID PRN PO CONSTIPATION Last administered on 11/05/19at 07:44; Start 11/04/19 at 19:00 Magnesium Hydroxide (Milk Of Magnesia) 2,400 mg PRN DAILY PRN PO CONSTIPATION; Start 11/04/19 at 19:00 Al Hydroxide/Mg Hydroxide (Mylanta Plus Xs) 30 ml PRN Q4HRS PRN PO HEARTBURN / GAS; Start 11/04/19 at 19:00 Simethicone (Gas-X) 80 mg PRN AFTMEALHC PRN PO GAS / BLOATING; Start 11/04/19 at 19:00 Diphenhydramine HCl (Benadryl) 25 mg PRN Q6HRS PRN PO ITCHING; Start 11/04/19 at 19:00 Benzocaine (Americaine) 1 spray PRN QID PRN TP TOPICAL PAIN Last administered on 11/04/19at 19:39; Start 11/04/19 at 19:00 Phenyleph/Shark Oil/Min Oil/Petrol (Preparation H) 1 duran PRN QID PRN RC RECTAL PAIN; Start 11/04/19 at 19:00 Hydrocortisone (Cortaid) 1 duran PRN QID PRN TP PERINEAL PAIN; Start 11/04/19 at 19:00 Ferrous Sulfate (Feosol) 325 mg BIDWMEALS PO Last administered on 11/05/19at 07:44; Start 11/05/19 at 08:00 Zolpidem Tartrate (Ambien) 5 mg PRN QHS PRN PO INSOMNIA, MAY REPEAT X1; Start 11/04/19 at 19:00 Info (Do NOT chart on this placeholder) 1 ea 1X PRN PRN MC SEE COMMENTS; Start 11/04/19 at 19:00 Info (Do NOT chart on this placeholder) 1 ea 1X PRN PRN MC SEE COMMENTS; Start 11/04/19 at 19:00 Oxycodone/ Acetaminophen (Percocet 5/325) 2 tab PRN Q4HRS PRN PO MODERATE PAIN, SEVERE PAIN Last administered on 11/05/19at 07:52; Start 11/04/19 at 19:00 Multivitamins (Thera M Plus) 1 tab DAILY PO Last administered on 11/05/19at 07:44; Start 11/05/19 at 09:00 Active Scripts Active Zofran (Ondansetron Hcl) 4 Mg Tablet 1 Tab PO PRN Q6-8HRS Reported Pulmicort Flexhaler (Budesonide) 90 Mcg Aer.pow.ba 90 Mcg IH BID Formula ( Vit W-Ca,Fe,FA(<1 mg)) 1 Each Tablet 1 Each PO Exam Abd: soft, non tender, fundus firm Assessment PPD#1 s/p Plan of Care: Continue current Tx, Mgmt LUC DICKENS Jr, MD Nov 05, 2019 08:23
[2019-11-05 09:35] VITALS: BP 109/57
[2019-11-05] MEDS: IBUPROFEN 400 MG TABLET. PO PRN ×2 (10:18→18:29)
[2019-11-05 12:52] VITALS: BP 95/49
[2019-11-05 18:07] VITALS: BP 102/62
[2019-11-06 00:25] VITALS: BP 111/61
[2019-11-06] MEDS: DOCUSATE SODIUM 100 MG CAPSULE. PO PRN (04:49)
[2019-11-06] MEDS: IBUPROFEN 400 MG TABLET. PO PRN (04:49)
[2019-11-06 04:50] VITALS: BP 122/54
--- NOTE | 2019-11-06 08:53 | PDOC3 ---
OB DISCHARGE SUMMARY DATE OF ADMISSION: 11/03/19 DATE OF DISCHARGE: 11/06/19 REASON FOR ADMISSION: Induction of labor INTRAPARTUM PROCEDURES: Spontanous Vag Deliv DISCHARGE DIAGNOSIS: Term Delivered DISCHARGE INFORMATION: Activity (ad gene ), Diet (regular), Instructions (pelvic rest x 6 wks) HOSPITAL COURSE Term gestation delivered vaginally without complications. LUC DICKENS Jr, MD Nov 06, 2019 08:53
[2019-11-06] MEDS ORDERED: IBUP-1027 PO (08:54)
--- NOTE | 2019-11-06 08:55 | DISCH ---
DISCHARGE INSTRUCTIONS Condition on Discharge Condition on Discharge: Stable Activity After Discharge Activity Instructions for Disc: Activity as tolerated Lifting Instructions after Dis: No heavy lifting Exercise Instruction after Dis: Walk 15 min, 3 x per day Driving Instructions after Dis: Do not drive today Weight Bearing Status after Di: Full weight bearing Diet after Discharge Diet after Discharge: Regular Wound Incision Care Wound/Incision Care: Ice to area for comfort Checks after Discharge Checks after discharge: Check your Temp as needed Contacting the DR. after DC Call your doctor for: Concerns you may have Follow-Up Follow up with: [facility] in 6 wks LUC DICKENS Jr, MD Nov 06, 2019 08:55
[2019-11-06] MEDS: FERROUS SULFATE 325 MG TABLET. PO SCH (08:56)
[2019-11-06] MEDS: MULTIVITAMIN with MINERAL TABLET. PO SCH (08:56)
[2019-11-06 13:05] VITALS: BP 124/80
[2019-11-06 13:13] VITALS: BP 124/80
== END 2019-11-06 13:35 | disposition home or self-care (01) | DRG 807 ==
LOC: 3 SO LND 20:11 → 3 NORTH 11-04 16:46 → 3 SO LND 11-04 16:47 → 3 NORTH 11-04 21:43
PROVIDERS: ADMIT Obstetrics & Gynecology; ATTEND Obstetrics & Gynecology
PROC: 10E0XZZ Delivery of Products of Conception, External Approach (ICD-10-PCS; principal; 2019-11-04)
PROC: 0UQMXZZ Repair Vulva, External Approach (ICD-10-PCS; 2019-11-04)
PROC: 00HU33Z Insertion of Infusion Device into Spinal Canal, Percutaneous Approach (ICD-10-PCS; 2019-11-04)
PROC: 3E0R3BZ Introduction of Anesthetic Agent into Spinal Canal, Percutaneous Approach (ICD-10-PCS; 2019-11-04)
DX: O71.82 Other specified trauma to perineum and vulva (principal); Z37.0 Single live birth; Z3A.39 39 weeks gestation of pregnancy
CPT/HCPCS: 36415; 85025; 86592; 86850; 86900; 86901; J2405; J2590; J2795; J3010; J3490; J7120; G0378

== ENCOUNTER 2019-11-10 15:31 | Emergency (ER) | payer MEDICAID ==
[~2019-11-10] VITALS: Ht 152.4 cm; Wt 70.0 kg
[~2019-11-10 15:31] MED LIST changes: +IBUP-1027 PO
[2019-11-10] MEDS ORDERED: METOCLOPRAMIDE HCL 10 MG/2 ML VIAL. IVP ONE (16:15)
[2019-11-10] MEDS ORDERED: diphenhydrAMINE 50 MG/ML VIAL IVP ONE (16:15)
[2019-11-10 16:18] LABS: BILIRUBIN,URINE NEGATIVE (NEG); CLARITY,URINE CLEAR; COLOR,URINE YELLOW; NITRITE,URINE NEGATIVE (NEG); PROTEIN,URINE NEGATIVE (NEG-TRACE); UROBILINOGEN,URINE 0.2 mg/dL (0.2 mg/dL)
[2019-11-10 16:19] LABS: BASO % 0 % (0-3); EOS # 0.2 x10^3/uL (0.0-0.7); EOS % 3 % (0-3); HEMATOCRIT 38.8 % (36.0-47.0); HEMOGLOBIN 12.7 g/dL (12.0-15.5); LYMPH # 0.8 x10^3/uL (1.0-4.8); LYMPH % 11 % (24-48); MEAN CORPUSCULAR HEMOGLOBIN 27 pg (25-35); MEAN CORPUSCULAR HGB CONC 33 g/dL (31-37); MEAN CORPUSCULAR VOLUME 83 fL (79-100); MONO # 0.6 x10^3/uL (0.0-1.1); MONO % 8 % (0-9); NEUT # 5.5 x10^3/uL (1.8-7.7); NEUT % 78 % (31-73); PLATELET COUNT 195 x10^3/uL (140-400); RED BLOOD COUNT 4.66 x10^6/uL (3.50-5.40); RED CELL DISTRIBUTION WIDTH 15.7 % (11.5-14.5); WHITE BLOOD COUNT 7.1 x10^3/uL (4.0-11.0)
[2019-11-10 16:27] LABS: CALCIUM 8.6 mg/dL (8.5-10.1); CREATININE 0.8 mg/dL (0.6-1.0); GFR 104.9; POTASSIUM 4.4 mmol/L (3.5-5.1)
[2019-11-10 16:33] LABS: BACTERIA,URINE 0 /HPF (0-FEW); RBC,URINE 0 /HPF (0-2); SQUAMOUS EPITHELIAL CELL,UR MOD /LPF
[2019-11-10 16:33] LABS: ALBUMIN 2.8 g/dL (3.4-5.0); ALBUMIN/GLOBULIN RATIO 0.6 (1.0-1.7); MAGNESIUM 1.6 mg/dL (1.8-2.4); TOTAL BILIRUBIN 0.3 mg/dL (0.2-1.0); TOTAL PROTEIN 7.2 g/dL (6.4-8.2)
[2019-11-10] MEDS ORDERED: IV NORMAL SALINE 1000ML BAG 1,000 ML IV ONE (16:45)
[2019-11-10] MEDS ORDERED: MAGNESIUM OXIDE 400 MG TABLET ONE (16:49)
[2019-11-10 16:55] VITALS: BP 170/109
[2019-11-10] MEDS ORDERED: CYCL10TA2 PO (17:18)
[2019-11-10] MEDS ORDERED: CODE1CAP8 PO (17:18)
--- NOTE | 2019-11-10 17:19 | PHYS DOC ---
Past Medical History Past Medical History: No Pertinent History Past Surgical History: No Surgical History Smoking Status: Never Smoker Alcohol Use: None Drug Use: None Adult General Chief Complaint Chief Complaint: HEADACHE HPI HPI Patient is a 28 year old F who is 6 days of a baby boy who she reports was an uncomplicated vaginal delivery here at [facility]. Her OB is Dr. Ortiz. This was her 3rd delivery. She states while she was here in the hospital and right after her delivery she had pain in B aspect of her neck down into her trapezius that they attributed to musculoskeletal pain from either labor or sleeping wrong. She states the pain in her neck and shoulders bring on a headache. She has a history of headaches and states this feels similar. Pt denies any hx of pre-eclampsia or eclampsia and states her blood pressures usually do well. She did have an epidural and states she has no pain at the epidural site or pain in her back. Pt is ambulatory into the ER without dif ficulty. She denies N/V. She denies photophobia or fever. Pt reports her vaginal bleeding is minimal and she has no pelvic pain. She is . Review of Systems Review of Systems Constitutional: Denies fever or chills Eyes: Denies change in visual acuity, redness, or eye pain HENT: Denies nasal congestion or sore throat Respiratory: Denies cough or shortness of breath Cardiovascular: Denies chest pain GI: Denies abdominal pain, nausea, vomiting, bloody stools or diarrhea Musculoskeletal: Denies back pain. Reports neck pain. Integument: Denies rash or skin lesions Neurologic: Denies focal weakness or sensory changes. Reports headache All other systems were reviewed and found to be within normal limits, except as documented in this note. Current Medications Current Medications Current Medications Medications (Trade) Dose Ordered Sig/Karthik Start Time Stop Time Status Last Admin Dose Admin Diphenhydramine HCl (Benadryl) 12.5 mg 1X ONCE 11/10/19 16:15 11/10/19 16:16 DC 11/10/19 16:17 12.5 MG Magnesium Oxide (Magnesium Oxide) 400 mg STK-MED ONCE 11/10/19 16:49 11/10/19 16:49 DC Metoclopramide HCl (Reglan Vial) 5 mg 1X ONCE 11/10/19 16:15 11/10/19 16:16 DC 11/10/19 16:18 5 MG Sodium Chloride 1,000 ml @ 1,000 mls/hr 1X ONCE 11/10/19 16:45 11/10/19 17:44 11/10/19 16:52 1,000 MLS/HR Allergies Allergies Allergies Coded Allergies Type Severity Reaction Last Updated Verified No Known Drug Allergies 01/14/16 No Physical Exam Physical Exam Constitutional: Well developed, well nourished, no acute distress, non-toxic appearance. HENT: Normocephalic, atraumatic, bilateral external ears normal, oropharynx moist, no oral exudates, nose normal. Neck: Normal range of motion, no nuchal rigidity or meningismus. No midline pain. Pt with pain down B perispinous region into B trapezius. Cardiovascular:Heart rate regular rhythm, no murmur Lungs & Thorax: Bilateral breath sounds clear to auscultation Abdomen: Bowel sounds normal, soft, no tenderness, no masses, no pulsatile masses. Skin: Warm, dry, no erythema, no rash. Back: No tenderness, no CVA tenderness. Specifically area of epidural examined and small pinpoint scab with no tenderness and no surrounding erythema Extremities: No tenderness, no cyanosis, no clubbing, ROM intact, no edema. Neurologic: Alert and oriented X 3, normal motor function, normal sensory function, no focal deficits noted. Psychologic: Affect normal, judgement normal, mood normal. Current Patient Data Vital Signs Vital Signs Date Time Temp Pulse Resp B/P (MAP) Pulse Ox O2 Delivery O2 Flow Rate FiO2 11/10/19 15:55 98.7 91 18 178/89 (118) 98 Room Air 98.7 Lab Values Laboratory Tests Test 11/10/19 15:55 11/10/19 16:07 Urine Collection Type Unknown Urine Color Yellow Urine Clarity Clear Urine pH 7.0 (<5.0-8.0) Urine Specific [place] 1.010 (1.000-1.030) Urine Protein Negative mg/dL (NEG-TRACE) Urine Glucose (UA) Negative mg/dL (NEG) Urine Ketones (Stick) Negative mg/dL (NEG) Urine Blood Small (NEG) Urine Nitrite Negative (NEG) Urine Bilirubin Negative (NEG) Urine Urobilinogen Dipstick 0.2 mg/dL (0.2 mg/dL) Urine Leukocyte Esterase Trace (NEG) Urine RBC 0 /HPF (0-2) Urine WBC 1-4 /HPF (0-4) Urine Squamous Epithelial Cells Mod /LPF Urine Bacteria 0 /HPF (0-FEW) White Blood Count 7.1 x10^3/uL (4.0-11.0) Red Blood Count 4.66 x10^6/uL (3.50-5.40) Hemoglobin 12.7 g/dL (12.0-15.5) Hematocrit 38.8 % (36.0-47.0) Mean Corpuscular Volume 83 fL (79-100) Mean Corpuscular Hemoglobin 27 pg (25-35) Mean Corpuscular Hemoglobin Concent 33 g/dL (31-37) Red Cell Distribution Width 15.7 % (11.5-14.5) H Platelet Count 195 x10^3/uL (140-400) Neutrophils (%) (Auto) 78 % (31-73) H Lymphocytes (%) (Auto) 11 % (24-48) L Monocytes (%) (Auto) 8 % (0-9) Eosinophils (%) (Auto) 3 % (0-3) Basophils (%) (Auto) 0 % (0-3) Neutrophils # (Auto) 5.5 x10^3/uL (1.8-7.7) Lymphocytes # (Auto) 0.8 x10^3/uL (1.0-4.8) L Monocytes # (Auto) 0.6 x10^3/uL (0.0-1.1) Eosinophils # (Auto) 0.2 x10^3/uL (0.0-0.7) Basophils # (Auto) 0.0 x10^3/uL (0.0-0.2) Sodium Level 135 mmol/L (136-145) L Potassium Level 4.4 mmol/L (3.5-5.1) Chloride Level 102 mmol/L (98-107) Carbon Dioxide Level 26 mmol/L (21-32) Anion Gap 7 (6-14) Blood Urea Nitrogen 8 mg/dL (7-20) Creatinine 0.8 mg/dL (0.6-1.0) Estimated GFR (Cockcroft-Gault) 104.9 BUN/Creatinine Ratio 10 (6-20) Glucose Level 78 mg/dL (70-99) Calcium Level 8.6 mg/dL (8.5-10.1) Magnesium Level 1.6 mg/dL (1.8-2.4) L Total Bilirubin 0.3 mg/dL (0.2-1.0) Aspartate Amino Transferase (AST) 25 U/L (15-37) Alanine Aminotransferase (ALT) 38 U/L (14-59) Alkaline Phosphatase 128 U/L (46-116) H Total Protein 7.2 g/dL (6.4-8.2) Albumin 2.8 g/dL (3.4-5.0) L Albumin/Globulin Ratio 0.6 (1.0-1.7) L Laboratory Tests 11/10/19 16:07 Laboratory Tests 11/10/19 16:07 EKG EKG [] Radiology/Procedures Radiology/Procedures [] Course & Med Decision Making Course & Med Decision Making Pt with mild hyponatremia and hypomagnesemia, which were replaced. Her BP improved in ER without intervention and she feels better. Discussed that I suspect this is more musculoskeletal but that she needs close f/u with her OB or PCP. I did write Rx for Fioricet and Flexeril. I discussed with pt that these medications are not known to be safe in and she will want to discuss them with either her OB or Hand Alterations Seamstress and may want to consider pump and dump and she said that would not be a problem since she is also using formula. Pt to return with any worsening symptoms but currently appears nontoxic and shows no signs of eclampsia, infection or meningitis. Possible spinal headache with recent epidural, but with it being 6 days later and mild, hopefully fluids and hydration will help the most. Dragon Disclaimer Dragon Disclaimer This electronic medical record was generated, in whole or in part, using a voice recognition dictation system. Departure Departure Impression: Primary Impression: Trapezius muscle strain Additional Impressions: Cervical strain Headache Disposition: 01 HOME, SELF-CARE Condition: IMPROVED Referrals: UNKNOWN PCP NAME (PCP) LUC ORTIZ Jr, MD Patient Instructions: General Headache Without Cause, [id number], Muscle Strain, [id number] Additional Instructions: Ice/heat therapy, rest, close follow up with your PCP or Dr. Ortiz. The medications prescribed can help with headaches and muscle spasms, but they are not clearly defined as safe while . You can run them by your OB or Hand Alterations Seamstress or you can pump and dump. Return to ER with any worsening symptoms such as fever, vomiting or worsening pain. Scripts Cyclobenzaprine Hcl (CYCLOBENZAPRINE HCL) 10 Mg Tablet 1 TAB PO TID PRN for MUSCLE SPASMS, #15 TAB Prov: DEVANTE MATAMOROS 11/10/19 Codeine/Butalbital/Asa/Caffein (FIORINAL-COD [id number] CAP) 1 Each Capsule 1 EACH PO Q6-8HRS PRN for PAIN, #15 CAP Prov: DEVANTE MATAMOROS 11/10/19 Problem Qualifiers DEVANTE MATAMOROS Nov 10, 2019 17:19
[2019-11-11] MEDS ORDERED: MAGNESIUM OXIDE 400 MG TABLET PO SCH (09:00)
== END 2019-11-10 17:45 | disposition home or self-care (01) ==
LOC: ER 15:31
DX: O9A.23 Injury, poisoning and certain other consequences of external causes complicating the puerperium (principal); S16.1XXA Strain of muscle, fascia and tendon at neck level, initial encounter; R51 Headache; X58.XXXA Exposure to other specified factors, initial encounter; Y93.89 Activity, other specified; Y92.89 Other specified places as the place of occurrence of the external cause; Y99.8 Other external cause status
CPT/HCPCS: 36415; 80053; 81001; 83735; 85025; 87086; 96374; 96375; 99284; J1200; J2765; J7030

== ENCOUNTER 2020-01-21 11:13 | Emergency (ER) | payer MEDICAID ==
[~2020-01-21] VITALS: Ht 152.4 cm; Wt 68.1 kg
[~2020-01-21 11:13] MED LIST changes: +CODE1CAP8 PO; +CYCL10TA2 PO
[2020-01-21 11:46] VITALS: BP 136/94
[2020-01-21] MEDS ORDERED: ALBUTEROL SULFATE 2.5 MG/3 ML NEBU. NEB ONE (12:15)
[2020-01-21] MEDS ORDERED: AZIT250T6 PO (13:16)
[2020-01-21] MEDS ORDERED: VENTOLIN HFA18 GM INH (13:16)
--- NOTE | 2020-01-21 13:16 | PHYS DOC ---
Past Medical History Past Medical History: Asthma Past Surgical History: No Surgical History Smoking Status: Current Every Day Smoker Alcohol Use: None Drug Use: None General Adult EDM: Chief Complaint: COUGH HPI: HPI: Patient is a 29 year old AA female who presents to the emergency department with complaints of a productive cough with yellow sputum, wheezing, and shortness of breath that began yesterday. She denies any fever, sore throat, abdominal pain, chest pain, palpitations, nausea, vomiting, diarrhea, rash, or ear pain. Patient denies any known recent exposure to COVID-19. She states that she has asthma and feels like her asthma is causing her symptoms. Patient states she does not currently have a inhaler and does not routinely take medication for her asthma. She currently denies any pain. Review of Systems: Review of Systems: Constitutional: Denies fever or chills. [] Eyes: Denies change in visual acuity. [] HENT: Denies nasal congestion or sore throat. [] Respiratory: See HPI Cardiovascular: Denies chest pain or edema. [] GI: Denies abdominal pain, nausea, vomiting, or diarrhea. [] Musculoskeletal: Denies back pain or joint pain. [] Integument: Denies rash. [] Neurologic: Denies headache, Lymphatic: Denies swollen glands. [] Psychiatric: Denies depression or anxiety. [] Heart Score: Risk Factors: Risk Factors: DM, Current or recent (<one month) smoker, HTN, HLP, family history of CAD, obesity. Risk Scores: Score 0 - 3: 2.5% MACE over next 6 weeks - Discharge Home Score 4 - 6: 20.3% MACE over next 6 weeks - Admit for Clinical Observation Score 7 - 10: 72.7% MACE over next 6 weeks - Early Invasive Strategies Current Medications: Current Medications Medications (Trade) Dose Ordered Sig/Karthik Start Time Stop Time Status Last Admin Dose Admin Albuterol Sulfate (Ventolin Neb Soln) 2.5 mg 1X ONCE 01/21/20 12:15 01/21/20 12:16 DC 01/21/20 12:36 2.5 MG Allergies: Allergies: Allergies Coded Allergies Type Severity Reaction Last Updated Verified No Known Drug Allergies 01/14/16 No Physical Exam: PE: Constitutional: Well developed, well nourished, no acute distress HENT: Normocephalic, atraumatic, bilateral external ears normal, bilateral TMs normal, posterior pharynx normal oropharynx moist, nose congested with erythema and edema of the nasal turbinates bilaterally Eyes: PERRLA, conjunctiva injected bilaterally, no discharge. [] Neck: Normal range of motion, no stridor. [] Cardiovascular:Heart rate regular rhythm, no murmur [] Lungs & Thorax: Bilateral breath sounds coarse with expiratory wheezes throughout, speaking full sentences, respirations even and unlabored, no retra ctions, no respiratory distress Skin: Warm, dry, no erythema, no rash. [] Back: No tenderness Extremities: No cyanosis, ROM intact Neurologic: Alert and oriented X 3, no focal deficits noted. [] Psychologic: Affect normal, judgement normal, mood normal. Current Patient Data: Vital Signs: Vital Signs Date Time Temp Pulse Resp B/P (MAP) Pulse Ox O2 Delivery O2 Flow Rate FiO2 01/21/20 13:06 105 20 98 Room Air 01/21/20 11:46 99.9 136/94 (108) 99.9 EKG: EKG: [] Radiology/Procedures: Radiology/Procedures: [] Course & Med Decision Making: Course & Med Decision Making Pertinent Labs and Imaging studies reviewed. (See chart for details) Patient is a 29-year-old -[place] Citizen female who presented to the emergency room with complaints of a productive cough and shortness of breath since yesterday. Patient was given an albuterol breathing treatment in the emergency department her lung sounds improved and were clear in all yoo following the breathing treatment. Patient denied any other symptoms of COVID-19 or any known exposure to the disease. Scription is written for pro-air inhaler and a Z-Bill. Patient instructed to follow-up with her primary care doctor in 1 to 2 days for reevaluation and avoid airway irritants. Patient verbalized an understanding of home care, medications, follow-up, and return to ED instructions and was in agreement with the plan of care. [] Dragon Disclaimer: Dragon Disclaimer: This electronic medical record was generated, in whole or in part, using a voice recognition dictation system. Departure Departure Impression: Primary Impression: Asthma with acute exacerbation in adult Qualified Codes: J45.21 - Mild intermittent asthma with (acute) exacerbation Additional Impression: Cough productive of yellow sputum Disposition: 01 HOME, SELF-CARE Condition: STABLE Referrals: UNKNOWN PCP NAME (PCP) Patient Instructions: Asthma, Adult, [id number], Cough, Adult, [id number] Additional Instructions: Fill prescription(s) and use as directed. Recommend use of a Cool mist humidifier in room at bedtime. Alternate Tylenol or ibuprofen as needed for pain/fever. Increase clear fluids. Avoid airway triggers such as smoke, fragrance, dust, and pollen. May take [id number] cough suppressants as needed. Follow-up with your primary care doctor in 1 to 2 days, return to the ER if symptoms worsen. Scripts Albuterol Sulfate (VENTOLIN HFA INHALER) 18 Gm Hfa.aer.ad 2 PUFF INH Q4HRS PRN for WHEEZING for 30 Days, #1 INHALER 0 Refills Prov: CHANELLE STORM APRN 01/21/20 Azithromycin (AZITHROMYCIN TABLET) 250 Mg Tablet 1 PKG PO UD for 5 Days, #6 TAB 0 Refills 2 the first day followed by 1 for days 2-5 Prov: CHANELLE STORM APRN 01/21/20 Justicifation of Admission Dx: Justifications for Admission: Justification of Admission Dx: No CHANELLE STORM APRN Jan 21, 2020 13:16
== END 2020-01-21 13:31 | disposition home or self-care (01) ==
LOC: ER 11:13
DX: J45.21 Mild intermittent asthma with (acute) exacerbation (principal); F17.200 Nicotine dependence, unspecified, uncomplicated
CPT/HCPCS: 94640; 99283; J7613

== ENCOUNTER 2020-09-25 11:26 | Emergency (ER) | payer MEDICAID ==
[~2020-09-25] VITALS: Ht 152.4 cm; Wt 55.0 kg
[~2020-09-25 11:26] MED LIST changes: +AZIT250T6 PO; +VENTOLIN HFA18 GM INH
[2020-09-25] MEDS ORDERED: IBUPROFEN 200 MG TABLET. PO ONE (12:00)
[2020-09-25] MEDS ORDERED: CETIRIZINE HCL 10 MG TABLET. PO ONE (12:00)
[2020-09-25] MEDS ORDERED: predniSONE 10 MG TABLET PO ONE (12:00)
--- NOTE | 2020-09-25 12:02 | PHYS DOC ---
Past Medical History Past Medical History: Asthma Past Surgical History: No Surgical History Smoking Status: Current Every Day Smoker Alcohol Use: None Drug Use: None General Adult EDM: Chief Complaint: HEADACHE HPI: HPI: Patient is a 29 year old female who presents with fever, headache, sore throat, bodyaches, nasal congestion x 2 days. States she took ibuprofen last night. Denies chest pain, soa, abdominal pain, vomiting, nausea, dizziness, syncope, diarrhea, numbness or tingling, focal weakness. Past medical hx is asthma and smoking. Rates her overall pain aching a 8/10. Review of Systems: Review of Systems: Constitutional: + fever or +chills. [] Eyes: Denies change in visual acuity. [] HENT: + nasal congestion or +sore throat. [] Respiratory: Denies cough or shortness of breath. [] Cardiovascular: Denies chest pain or edema. [] GI: Denies abdominal pain, nausea, vomiting, bloody stools or diarrhea. [] : Denies dysuria. [] Musculoskeletal: Denies back pain or joint pain. +Generalized bodyaches[] Integument: Denies rash. [] Neurologic: + headache, denies focal weakness or sensory changes. [] Endocrine: Denies polyuria or polydipsia. [] Lymphatic: Denies swollen glands. [] Psychiatric: Denies depression or anxiety. [] Heart Score: Risk Factors: Risk Factors: DM, Current or recent (<one month) smoker, HTN, HLP, family history of CAD, obesity. Risk Scores: Score 0 - 3: 2.5% MACE over next 6 weeks - Discharge Home Score 4 - 6: 20.3% MACE over next 6 weeks - Admit for Clinical Observation Score 7 - 10: 72.7% MACE over next 6 weeks - Early Invasive Strategies Allergies: Allergies: Allergies Coded Allergies Type Severity Reaction Last Updated Verified No Known Drug Allergies 01/14/16 No Physical Exam: PE: Constitutional: Well developed, well nourished, no acute distress, non-toxic appearance. [] HENT: Normocephalic, atraumatic, bilateral external ears normal, oropharynx moist, no oral exudates, nose normal. [] Eyes: PERRLA, EOMI, conjunctiva normal, no discharge. [] Neck: Normal range of motion, no tenderness, supple, no stridor. [] Cardiovascular:Heart rate regular rhythm, no murmur [] Lungs & Thorax: Bilateral breath sounds clear to auscultation [] Abdomen: Bowel sounds normal, soft, no tenderness, no masses, no pulsatile masses. [] Skin: Warm, dry, no erythema, no rash. [] Back: No tenderness, no CVA tenderness. [] Extremities: No tenderness, no cyanosis, no clubbing, ROM intact, no edema. [] Neurologic: Alert and oriented X 3, normal motor function, normal sensory function, no focal deficits noted. [] Psychologic: Affect normal, judgement normal, mood normal. Normal physical Exam[] EKG: EKG: [] Radiology/Procedures: Radiology/Procedures: [] Impression: [facility] [address] [place] [address] IMAGING REPORT Signed PATIENT: DARA PERALTA SACCOUNT: [id number] : 1990 LOCATION: ER AGE: 29 SEX: F EXAM STATUS: PRE ER ORD. PHYSICIAN: TREVON GALLOWAY APRN REASON: fever PROCEDURE: PORTABLE CHEST 1V Study: XR CHEST 1V Indication: Fever. Comparison: None. Findings: No confluent airspace infiltrate, layering effusion or pneumothorax. Relatively symmetric aeration pattern of the lungs. Unremarkable cardiomediastinal silh ouette and coleen. Impression: No acute radiographic abnormality of the chest. Electronically signed by: KJ MINOR MD (09/25/2020 12:26 PM) [id number] DICTATED and SIGNED BY: KJ MINOR MD DATE: 09/25/20 [id number] Course & Med Decision Making: Course & Med Decision Making Pertinent Labs and Imaging studies reviewed. (See chart for details) COVID-19 CRITERIA: The patient was evaluated during the global COVID-19 pandemic, and that diagnosis was suspected/considered upon their initial presentation. Their evaluation, treatment and testing was consistent with current guidelines for patients who present with complaints or symptoms that may be related to COVID-19. See HPI. Alert and oriented x4. Ambulatory with a steady gait. Skin pink warm and dry. Speaks in full clear sentences. Uvula midline. No trismus. Throat appears reddened swelling or exudates. Lungs are clear to auscultation all lobes. Patient is given ibuprofen, prednisone, Zyrtec in the ED. strep is negative. Influenza is negative. Covid is sent off to the lab. [] Rachon Disclaimer: Dragon Disclaimer: This electronic medical record was generated, in whole or in part, using a voice recognition dictation system. COVID-19 Patient Risks: Age 65 or older: No Sign of co-morbidity: Yes Exp to person + for COVID: No Exp to PUI: No Travel from affected area: No Lower respiratory symptoms: No Fever: Yes Other: Yes (headache, bodyaches, sore throat) PPE Use: Full PPE with N95 mask or PAPR: Yes Departure Departure Impression: Primary Impression: Throat pain in adult Additional Impressions: Nasal congestion Body aches Person under investigation for COVID-19 Fever Qualified Codes: R50.9 - Fever, unspecified Disposition: 01 DC HOME SELF CARE/HOMELESS Condition: STABLE Referrals: UNKNOWN PCP NAME (PCP) Patient Instructions: Fever, Adult, Sore Throat Additional Instructions: Follow-up with a primary care provider. Begin taking the Medrol Dosepak tomorrow as already gave you prednisone today. Start all other medications today and take with food. If you begin having severe shortness of breath or chest pain return to emergency room. You have been tested for or diagnosed with COVID-19. It is an infection caused by a new type of coronavirus. COVID-19 will cause cold-like or mild flu symptoms in most. It can cause more severe symptoms like problems breathing in some. There is no treatment for COVID-19. The body will clear the infection over time. Self-care will help to ease discomfort. Steps to Take: Self-Care Rest as needed. Healthy habits may help you feel better. Steps include: Choose healthy foods including fruits and vegetables. Drink water throughout the day. Get plenty of sleep each night. If you smoke, try to quit. It may ease breathing. Avoid alcohol. Keep Others Healthy The virus can spread to others. Droplets are released every time you sneeze or cough. The droplets can get into the mouth, nose, or eyes of people near you and lead to infection. To lower the chances of spreading COVID-19 to others: Stay at home until your doctor has said it is safe to leave. If you tested positive this will mean staying isolated until both of the following are true: At least 7 days have passed since the start of illness. You are free of fever for at least 72 hours without the use of medicine. During this time: - Avoid public areas, events, or transportation. Do not return to work or school until your doctor has said it is safe to do so. - Call ahead if you need to go to a medical center. Let them know you may have COVID-19. It will help them guide you where to go. They may also ask you to wear a facemask when you come to the office. - If you call for emergency medical services, let them know you may have COVID- 19. While at home: - Try to avoid close contact with others. Stay about 6 feet away. - If possible, spend most of your time in a separate room from others. - Use a face mask if you will be in close contact with others such as sharing a room or vehicle. - Have someone wipe down common surfaces in the home. Use household lithographic printing machinist every day on areas like doorknobs, counters, or sinks. - Cough or sneeze into a tissue. Throw the tissue away right after use. If a tissue is not available, cough or sneeze into your elbow. - Wash your hands often. Wash them after sneezing or coughing. Use soap and water and wash for at least 20 seconds. Alcohol based hand gut cleaner can be used if soap and water is not available. - Do not prepare food for others. Avoid sharing personal items like forks, spoons, or toothbrushes. - Avoid close contact with pets while you are sick. There is no evidence of the virus passing to pets. This is a safety step until more is known about this virus. Isolation can be frustrating. Social interaction can help. Keep in touch with friends and family through phone and tech options. You can still interact with others in your home, just keep a safe distance of about 6 feet. Follow-up: Your doctors office will check in with you to see if there are any changes in your health. You may be asked to keep track of symptoms to share with them. They will also let you know when you are clear to be in public again. Problems to Look Out For: Contact your doctor if your recovery is not going as you expect. Get emergency care if you have problems such as: - Trouble breathing - Nonstop chest pain or pressure - Changes in awareness, confusion, or problems waking - Lips or face have bluish color - Worsening of symptoms If you think you have an emergency, call for emergency medical services right away. As taken from [facility] Health Scripts Azithromycin (AZITHROMYCIN TABLET) 250 Mg Tablet 1 PKG PO UD for 5 Days, #6 TAB 0 Refills 2 the first day followed by 1 for days 2-5 Prov: TREVON GALLOWAY APRN 09/25/20 Methylprednisolone (MEDROL) 4 Mg Tab.ds.pk 1 PKG PO UD, #1 PKG Prov: TREVON GALLOWAY APRN 09/25/20 TREVON GALLOWAY APRN Sep 25, 2020 12:02
--- NOTE | 2020-09-25 12:29 | RAD ---
Study: XR CHEST 1V Indication: Fever. Comparison: None. Findings: No confluent airspace infiltrate, layering effusion or pneumothorax. Relatively symmetric aeration pa ttern of the lungs. Unremarkable cardiomediastinal silhouette and coleen. Impression: No acute radiographic abnormality of the chest. Electronically signed by: KJ MINOR MD (09/25/2020 12:26 PM) [id number]
[2020-09-25 12:40] VITALS: BP 140/86
[2020-09-25 13:12] LABS: BILIRUBIN,URINE NEGATIVE (NEG); CLARITY,URINE CLEAR; COLOR,URINE YELLOW; NITRITE,URINE NEGATIVE (NEG); PH,URINE 6.5 (<5.0-8.0); PROTEIN,URINE NEGATIVE (NEG-TRACE)
[2020-09-25 13:22] LABS: RBC,URINE 0 /HPF (0-2)
[2020-09-25 13:23] LABS: BACTERIA,URINE FEW /HPF (0-FEW)
[2020-09-25 13:25] LABS: YEAST,URINE PRESENT /HPF
[2020-09-25 14:47] LABS: INFLUENZA A PATIENT NEGATIVE (NEGATIVE); INFLUENZA B PATIENT NEGATIVE (NEGATIVE)
[2020-09-25] MEDS ORDERED: AZIT250T6 PO (14:56)
[2020-09-25] MEDS ORDERED: METH4TAB2 PO (14:56)
--- NOTE | 2020-09-28 13:01 | NUR ---
IP: Attempted to contact pt concerning COVID results. Number provided is not inservice.
== END 2020-09-25 15:33 | disposition home or self-care (01) ==
LOC: ER 11:26
DX: J02.9 Acute pharyngitis, unspecified (principal); Z20.822 Contact with and (suspected) exposure to COVID-19; R50.9 Fever, unspecified; M79.10 Myalgia, unspecified site; J45.909 Unspecified asthma, uncomplicated; F17.200 Nicotine dependence, unspecified, uncomplicated
CPT/HCPCS: 71045; 81001; 81025; 87070; 87086; 87147; 87804; 87880; 99284; C9803; J7512; U0003

== ENCOUNTER 2020-12-03 22:06 | Emergency (ER) | payer MEDICAID ==
[~2020-12-03] VITALS: Ht 152.4 cm; Wt 55.0 kg
[~2020-12-03 22:06] MED LIST changes: +METH4TAB2 PO
[2020-12-03 22:30] VITALS: BP 147/91
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
[2020-12-03] MEDS ORDERED: TRAM-48 PO (22:59)
[2020-12-03] MEDS ORDERED: SILV20CR14 TP (22:59)
== END 2020-12-03 23:14 | disposition home or self-care (01) ==
LOC: ER 22:06
DX: T25.191A Burn of first degree of multiple sites of right ankle and foot, initial encounter (principal); J45.909 Unspecified asthma, uncomplicated; F17.200 Nicotine dependence, unspecified, uncomplicated; X10.2XXA Contact with fats and cooking oils, initial encounter; Y93.89 Activity, other specified; Y92.89 Other specified places as the place of occurrence of the external cause; Y99.8 Other external cause status
CPT/HCPCS: 99283

== ENCOUNTER → 2021-04-06 | Outpatient (CLI) | payer MEDICAID ==
[~2021-04-06] MED LIST changes: +CYCL10TA19 PO; -CYCL10TA2 PO; +SILV20CR14 TP; +TRAM-48 PO
== END ==
LOC: LAB 11:11
PROVIDERS: ATTEND Obstetrics & Gynecology
DX: Z01.411 Encounter for gynecological examination (general) (routine) with abnormal findings (principal)
CPT/HCPCS: 36415; 86592; 86703; 86803; 87340

== ENCOUNTER 2022-01-02 18:40 | Emergency (ER) | payer MEDICAID ==
[~2022-01-02] VITALS: Ht 152.4 cm; Wt 56.7 kg
[2022-01-02 20:12] VITALS: BP 122/85
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
[2022-01-02] MEDS ORDERED: KETOROLAC 60 MG/2 ML VIAL. IM ONE (20:15)
[2022-01-02] MEDS ORDERED: IBUP-1007 PO (21:01)
--- NOTE | 2022-01-02 22:23 | RAD ---
Exam: Left ankle 3 views INDICATION: Nontraumatic ankle pain, pain TECHNIQUE: Frontal, lateral and oblique views of the left ankle Comparisons: None FINDINGS: Bone mineralization normal. No acute or healed fractures. No acute or healed fractures. Soft tissues are unremarkable. Joint spaces are well-maintained. IMPRESSION: No acute osseous abnormality Electronically signed by: Hebert Hankins MD (01/02/2022 10:21 PM) [facility]
== END 2022-01-02 22:18 | disposition home or self-care (01) ==
LOC: ER 18:40
DX: M25.572 Pain in left ankle and joints of left foot (principal); G89.29 Other chronic pain; M54.9 Dorsalgia, unspecified; J45.909 Unspecified asthma, uncomplicated; F17.200 Nicotine dependence, unspecified, uncomplicated
CPT/HCPCS: 73610; 96372; 99283; J1885